=== PATIENT | male | born 1950 | race Asian ===

== ENCOUNTER 2020-03-04 10:56 | Inpatient (IN) | payer MEDICARE, MEDICAID ==
[~2020-03-04] VITALS: Ht 167.6 cm; Wt 50.3 kg
[2020-03-04] MEDS ORDERED: ACETAMINOPHEN 325MG TABLET PO STA (11:16)
[2020-03-04] MEDS ORDERED: SODIUM CHLORIDE 0.9% 1,000 ML IV ONE (11:45)
[2020-03-04] MEDS ORDERED: PIPERACILLIN/TAZ 3.375G PREMIX 50 ML IV NR (13:15)
[2020-03-04] MEDS ORDERED: PIPERACILLIN/TAZ 3.375G PREMIX 50 ML IV ONE (13:15)
[2020-03-04 13:53] LABS: BASOPHILS % 0.3 % (0.0-2.0); EOSINOPHILS % 2.5 % (0.0-5.0); HEMATOCRIT. 38.3 % (42.0-52.0); HEMOGLOBIN. 13.2 g/dL (14.0-18.0); LYMPHOCYTES % 12.9 % (20.0-50.0); MEAN CORPUSCULAR HEMOGLOBIN 33.3 pg (28.0-32.0); MEAN CORPUSCULAR VOLUME 96.7 fL (80.0-94.0); MEAN PLATELET VOLUME 10.5 fl (7.4-10.4); MONOCYTES % 6.3 % (2.0-8.0); PLATELET 85 x1000/uL (130-400); RED BLOOD CELL COUNT 3.96 mill/uL (4.7-6.1); RED CELL DISTRIBUTION WIDTH 14.7 % (11.6-14.6)
[2020-03-04 14:00] LABS: CHLORIDE 102 mEq/L (98-107)
[2020-03-04 14:01] LABS: INR 0.9; PROTHROMBIN TIME 9.5 sec (9.6-11.0)
[2020-03-04 14:06] LABS: BETA HYDROXYBUTYRATE 0.1 mMol/L (0.0-0.3)
[2020-03-04 15:36] LABS: CLARITY URINE CLEAR (CLEAR); COLOR URINE YELLOW (YELLOW); KETONES URINE NEGATIVE (NEGATIVE); LEUKOCYTE ESTERASE URINE NEGATIVE (NEGATIVE); NITRITE URINE NEGATIVE (NEGATIVE); OCCULT BLOOD URINE NEGATIVE (NEGATIVE); PH URINE 8.5 (4.5-8.0); PROTEIN URINE NEGATIVE (NEGATIVE); UROBILINOGEN URINE 0.2 E.U./dL (0.2-1.0)
[2020-03-04] MEDS ORDERED: GUAIFENESIN 200MG/10ML SUGAR FREE UDC PO PRN (15:45)
[2020-03-04] MEDS ORDERED: NITROGLYCERIN 0.4MG TABLET SL SL PRN (15:45)
[2020-03-04] MEDS ORDERED: ALBUTEROL 6.7GM HFA INHALER ORI PRN (15:45)
[2020-03-04] MEDS ORDERED: KETOROLAC 15MG/ML VIAL IV PRN (15:45)
[2020-03-04] MEDS ORDERED: DOCUSATE SODIUM 100MG CAPSULE PO PRN (15:45)
[2020-03-04] MEDS ORDERED: ONDANSETRON HCL 4MG/2ML INJ IV PRN (15:45)
[2020-03-04] MEDS ORDERED: MAGNESIUM/ALUMINUM HYDROXIDE/SIMETHICONE 30ML UDC PO PRN (15:45)
[2020-03-04] MEDS ORDERED: ACETAMINOPHEN 325MG TABLET PO PRN ×2 (15:45)
[2020-03-04] MEDS ORDERED: CLONIDINE 0.1MG TABLET PO PRN (15:45)
[2020-03-04 17:51] LABS: VITAMIN B12 SERUM 1393 pg/mL (211-911)
[2020-03-04 18:01] LABS: FOLIC ACID (FOLATE) SERUM > 20.00 ng/mL (>5.38)
[2020-03-04] MEDS: AZITHROMYCIN 500 MG in DEXT 5% WATER 250 ML IV SCH (20:45)
[2020-03-04] MEDS ORDERED: ZOLPIDEM TARTRATE 5MG TABLET PO PRN (21:00)
[2020-03-04] MEDS: DILTIAZEM HCL 60MG TABLET PO SCH (21:00)
[2020-03-04] MEDS: CEFTRIAXONE 1 G PREMIX 50 ML IV SCH (21:54)
[2020-03-04] MEDS: ALBUTEROL 6.7GM HFA INHALER ORI SCH (23:50)
[2020-03-04] MEDS: ENOXAPARIN 40MG/0.4ML SYR SUBCUT SCH (23:55)
[2020-03-05] MEDS: ASCORBIC ACID 500 MG TABLET PO SCH ×3 (00:50→21:00)
[2020-03-05] MEDS: GUAIFENESIN/DM 600MG/30MG ER TAB 12HR PO SCH ×3 (00:50→18:00)
[2020-03-05] MEDS: FAMOTIDINE 20MG TABLET PO SCH ×3 (00:50→21:00)
[2020-03-05 03:27] LABS: CHLORIDE 103 mEq/L (98-107)
[2020-03-05 03:34] LABS: PHOSPHORUS 3.3 mg/dL (2.5-4.9)
[2020-03-05 03:37] LABS: CREATINE KINASE 160 IU/L (39-308)
[2020-03-05 03:40] LABS: CREATINE KINASE MB FRACTION < 1.0 ng/mL (0.5-3.6)
[2020-03-05 03:42] LABS: BASOPHILS % 0.3 % (0.0-2.0); EOSINOPHILS % 5.1 % (0.0-5.0); HEMATOCRIT. 31.7 % (42.0-52.0); HEMOGLOBIN. 10.9 g/dL (14.0-18.0); LYMPHOCYTES % 14.3 % (20.0-50.0); MEAN CORPUSCULAR HEMOGLOBIN 33.3 pg (28.0-32.0); MEAN PLATELET VOLUME 10.3 fl (7.4-10.4); MONOCYTES % 7.5 % (2.0-8.0); NEUTROPHILS % 72.8 % (40.0-76.0); PLATELET 85 x1000/uL (130-400); RED BLOOD CELL COUNT 3.27 mill/uL (4.7-6.1); RED CELL DISTRIBUTION WIDTH 14.5 % (11.6-14.6)
[2020-03-05] MEDS: ALBUTEROL 6.7GM HFA INHALER ORI SCH ×2 (08:00→21:44)
[2020-03-05] MEDS: ASPIRIN 81MG EC TABLET PO SCH (09:00)
[2020-03-05] MEDS: ZINC SULFATE 220 MG ( 50 ) CAPSULE PO SCH (09:00)
[2020-03-05] MEDS: DEXAMETHASONE 10 MG/ML VIAL IV SCH (09:00)
[2020-03-05] MEDS: AZITHROMYCIN 500 MG in DEXT 5% WATER 250 ML IV SCH (16:00)
[2020-03-05] MEDS: ENOXAPARIN 40MG/0.4ML SYR SUBCUT SCH (17:00)
[2020-03-05] MEDS: DILTIAZEM HCL 60MG TABLET PO SCH ×2 (18:00)
[2020-03-05] MEDS: CEFTRIAXONE 1 G PREMIX 50 ML IV SCH (21:00)
[2020-03-06] MEDS: ALBUTEROL 6.7GM HFA INHALER ORI SCH ×5 (01:18→21:35)
[2020-03-06] MEDS: DILTIAZEM HCL 60MG TABLET PO SCH ×4 (06:00→18:00)
[2020-03-06] MEDS: GUAIFENESIN/DM 600MG/30MG ER TAB 12HR PO SCH ×2 (06:00→18:00)
[2020-03-06] MEDS: DEXAMETHASONE 10 MG/ML VIAL IV SCH (10:11)
[2020-03-06] MEDS: FAMOTIDINE 20MG TABLET PO SCH ×2 (10:11→20:38)
[2020-03-06] MEDS: ASPIRIN 81MG EC TABLET PO SCH (10:12)
[2020-03-06] MEDS: ZINC SULFATE 220 MG ( 50 ) CAPSULE PO SCH (10:12)
[2020-03-06] MEDS: ASCORBIC ACID 500 MG TABLET PO SCH ×2 (10:12→20:37)
[2020-03-06 11:13] VITALS: BP 168/71
[2020-03-06 11:40] VITALS: BP 175/71
[2020-03-06 16:00] VITALS: BP 157/58
[2020-03-06] MEDS ORDERED: AZITHROMYCIN 500 MG in DEXT 5% WATER 250 ML IV SCH (16:00)
[2020-03-06] MEDS: AZITHROMYCIN 500 MG in DEXT 5% WATER 250 ML IV SCH (16:38)
[2020-03-06] MEDS: ENOXAPARIN 30MG/0.3ML SYR SUBCUT SCH (16:39)
[2020-03-06] MEDS: CEFTRIAXONE 1,000 MG in DEXTROSE 5% WATER 50 ML IV SCH (18:00)
[2020-03-06 20:00] VITALS: BP 141/78
[2020-03-07] VITALS: BP 138/80
[2020-03-07] MEDS: DILTIAZEM HCL 60MG TABLET PO SCH ×4 (00:21→17:00)
[2020-03-07] MEDS: ALBUTEROL 6.7GM HFA INHALER ORI SCH ×4 (01:20→21:02)
[2020-03-07 04:00] VITALS: BP 118/66
[2020-03-07] MEDS: GUAIFENESIN/DM 600MG/30MG ER TAB 12HR PO SCH ×2 (05:43→17:00)
[2020-03-07 08:00] VITALS: BP 138/82
[2020-03-07] MEDS: FAMOTIDINE 20MG TABLET PO SCH ×2 (08:16→21:01)
[2020-03-07] MEDS: ZINC SULFATE 220 MG ( 50 ) CAPSULE PO SCH (08:16)
[2020-03-07] MEDS: DEXAMETHASONE 10 MG/ML VIAL IV SCH (08:16)
[2020-03-07] MEDS: ASPIRIN 81MG EC TABLET PO SCH (08:16)
[2020-03-07] MEDS: ASCORBIC ACID 500 MG TABLET PO SCH ×2 (08:16→21:01)
[2020-03-07] MEDS: CLOPIDOGREL 75MG TABLET PO SCH (11:15)
[2020-03-07 12:00] VITALS: BP 142/73
[2020-03-07] MEDS: ENOXAPARIN 30MG/0.3ML SYR SUBCUT SCH (15:33)
[2020-03-07] MEDS: AZITHROMYCIN 500 MG in DEXT 5% WATER 250 ML IV SCH (15:36)
[2020-03-07 16:00] VITALS: BP 134/78
[2020-03-07] MEDS: CEFTRIAXONE 1,000 MG in DEXTROSE 5% WATER 50 ML IV SCH (17:00)
[2020-03-07 19:43] LABS: HEMATOCRIT. 38.8 % (42.0-52.0); HEMOGLOBIN. 13.3 g/dL (14.0-18.0); MEAN CORPUSCULAR HEMOGLOBIN 33.6 pg (28.0-32.0); MEAN CORPUSCULAR VOLUME 98.2 fL (80.0-94.0); MEAN PLATELET VOLUME 9.9 fl (7.4-10.4); PLATELET 172 x1000/uL (130-400); RED BLOOD CELL COUNT 3.95 mill/uL (4.7-6.1)
[2020-03-07 20:00] VITALS: BP 151/70
[2020-03-07 22:01] LABS: PLATELET ESTIMATE NORMAL
[2020-03-08] VITALS: BP 130/66
[2020-03-08] MEDS: ALBUTEROL 6.7GM HFA INHALER ORI SCH ×3 (03:00→17:15)
[2020-03-08 04:00] VITALS: BP 134/79
[2020-03-08] MEDS: DILTIAZEM HCL 60MG TABLET PO SCH ×4 (06:33→18:34)
[2020-03-08] MEDS: GUAIFENESIN/DM 600MG/30MG ER TAB 12HR PO SCH ×2 (06:33→17:15)
[2020-03-08 06:55] LABS: CHLORIDE 95 mEq/L (98-107)
[2020-03-08 08:00] VITALS: BP 149/80
[2020-03-08] MEDS: DEXAMETHASONE 10 MG/ML VIAL IV SCH (10:08)
[2020-03-08] MEDS: FAMOTIDINE 20MG TABLET PO SCH ×2 (10:08→19:57)
[2020-03-08] MEDS: CLOPIDOGREL 75MG TABLET PO SCH (10:08)
[2020-03-08] MEDS: ZINC SULFATE 220 MG ( 50 ) CAPSULE PO SCH (10:08)
[2020-03-08] MEDS: ASCORBIC ACID 500 MG TABLET PO SCH ×2 (10:09→19:57)
[2020-03-08] MEDS: ASPIRIN 81MG EC TABLET PO SCH (10:09)
[2020-03-08 12:00] VITALS: BP 101/76
[2020-03-08 16:00] VITALS: BP 137/83
[2020-03-08] MEDS: AZITHROMYCIN 500 MG in DEXT 5% WATER 250 ML IV SCH (17:14)
[2020-03-08] MEDS: ENOXAPARIN 30MG/0.3ML SYR SUBCUT SCH (17:15)
[2020-03-08] MEDS: CEFTRIAXONE 1,000 MG in DEXTROSE 5% WATER 50 ML IV SCH (19:57)
[2020-03-08 20:00] VITALS: BP 114/77
[2020-03-09] VITALS: BP 127/79
[2020-03-09] MEDS: DILTIAZEM HCL 60MG TABLET PO SCH ×3 (00:30→12:58)
[2020-03-09 04:00] VITALS: BP 100/70
[2020-03-09] MEDS: GUAIFENESIN/DM 600MG/30MG ER TAB 12HR PO SCH (06:43)
[2020-03-09 08:00] VITALS: BP 126/74
[2020-03-09] MEDS: DEXAMETHASONE 10 MG/ML VIAL IV SCH (10:19)
[2020-03-09] MEDS: ZINC SULFATE 220 MG ( 50 ) CAPSULE PO SCH (10:20)
[2020-03-09] MEDS: FAMOTIDINE 20MG TABLET PO SCH (10:20)
[2020-03-09] MEDS: ASCORBIC ACID 500 MG TABLET PO SCH (10:20)
[2020-03-09] MEDS: ASPIRIN 81MG EC TABLET PO SCH (10:20)
[2020-03-09] MEDS: CLOPIDOGREL 75MG TABLET PO SCH (10:20)
[2020-03-09 12:00] VITALS: BP 156/86
[2020-03-09 12:30] VITALS: BP 108/86
== END 2020-03-09 15:15 | disposition home or self-care (01) | DRG 871 ==
LOC: ER 10:56 → 8WST 15:03 → EDBEDREQ 15:08 → SUPCPDRO 15:43 → ENRESERV 03-06 10:13
PROVIDERS: ADMIT Internal Medicine; ATTEND Internal Medicine
DX: A41.89 Other specified sepsis (principal); U07.1 COVID-19; J12.89 Other viral pneumonia; J96.00 Acute respiratory failure, unspecified whether with hypoxia or hypercapnia; J15.9 Unspecified bacterial pneumonia; E87.2 Acidosis; E44.1 Mild protein-calorie malnutrition; E87.1 Hypo-osmolality and hyponatremia; Z68.1 Body mass index [BMI] 19.9 or less, adult; R55 Syncope and collapse; D63.8 Anemia in other chronic diseases classified elsewhere; I10 Essential (primary) hypertension; E11.9 Type 2 diabetes mellitus without complications; D69.6 Thrombocytopenia, unspecified; E78.5 Hyperlipidemia, unspecified; R26.89 Other abnormalities of gait and mobility
CPT/HCPCS: 36415; 70450; 71045; 72170; 80053; 80061; 81003; 82010; 82607; 82746; 82962; 83036; 83540; 83550; 83605; 84145; 84484; 85025; 85610; 87040; 87086; 87635; 93005; 93970; 96372; 99291; J0456; J0696; J2543; J7030; J7060; 80048; 86141; 94640; J1100; J1650; J7040